=== PATIENT | female | born 1990 | race Caucasian/White ===

== ENCOUNTER 2020-11-28 08:16 | Emergency (ER) | payer BC, SELFPAY ==
[2020-11-28 08:22] VITALS: BP 126/85; PULSE 61; RESP 20; TEMP 36.4; O2SAT 100
--- NOTE | 2020-11-28 08:55 | ED.SKABFB ---
HPI - Skin/Abscess/Foreign Bdy General Chief complaint: Skin/Abscess/Foreign Body Stated complaint: rash all over Source: patient Mode of arrival: ambulatory History of Present Illness HPI narrative: Patient is a 30-year-old female who presents complaining of rash to bilateral arms and swelling to bilateral eyes. She reports itching to lips. She reports pulling weeds and working in the yard approximately 3 days ago. She reports symptoms have been increasing over the past day. She denies taking fjld-tyx-hwxlydy medications prior to arrival. She denies known allergies. She denies significant medical history. Related Data Home Medications Medication Instructions Recorded Confirmed cholecalciferol (vitamin D3) 50 50 mcg PO DAILY 10/02/20 11/29/20 mcg (2,000 unit) capsule levonorgestrel 20 mcg/24 hours (6 1 insert INTRAUTERINE ONCE 10/02/20 11/29/20 yrs) 52 mg intrauterine device Allergies Allergy/AdvReac Type Severity Reaction Status Date / Time poison nano extract Allergy Hives Verified 11/29/20 12:51 Review of Systems Review of Systems: CONSTITUTIONAL: Denies fever, chills, or sweats. EYES: Denies visual changes, redness, or discharge. ENT: Denies rhinorrhea, congestion, sore throat, or otalgia. CARDIOVASCULAR: Denies chest pain, palpitations, or edema. RESPIRATORY: Denies cough or dyspnea. GASTROINTESTINAL: Denies abdominal pain, nausea, vomiting, or diarrhea. GENITOURINARY: Denies dysuria or hematuria. SKIN: Rash to bilateral arms MUSCULOSKELETAL: Denies back pain, joint pain, or myalgia. NEUROLOGIC: Denies headache, numbness, dizziness, or weakness. PSYCHIATRIC: Denies anxiety or depression. [facility] Past Medical History Medical History Carpal tunnel syndrome IBS (irritable bowel syndrome) IUD (intrauterine device) in place Morbid obesity with BMI of 50.0-59.9, adult PCOS (polycystic ovarian syndrome) Situational anxiety Family History Family History Mother Family history of mental disorder Depression Family history of migraine headaches Age related osteoporosis Grandparent Hypertension Family history of cardiovascular disease Family history of malignant neoplasm of breast in first degree relative Dementia COPD (chronic obstructive pulmonary disease) Sibling Family history of drug addiction Social History Social History Smoking status: Never smoker Second hand tobacco smoke exposure: Yes Smoking end date: 07/02/13 Alcohol intake: current Drinks per week: 1 Substance use: never Substance use type: does not use Gender identity (if verbalized by the patient): Female Sexual Orientation (if Verbalized by the Patient): Straight or Heterosexual Spiritual care concerns: No Agree to blood products: Yes Comments At the time of signature, I have reviewed and agree with nursing past medical, surgical, social, and family history unless otherwise noted. Please see nursing chart for further information. There is no relevant family history pertinent to the presenting complaint. Exam Narrative: GENERAL: Well-appearing, well-nourished, and in no acute distress. HEAD: Normocephalic, atraumatic. EYES: EOMI. No redness or drainage. Conjunctiva are normal. ENT: Mucous membranes pink and moist. Nares clear. No rhinorrhea. TMs normal bilaterally. Throat normal. Uvula midline. CHEST: No respiratory distress. HEART: Regular rate and rhythm. EXTREMITIES: Normal range of motion. SKIN: Linear blistering of bilateral arms, erythema and edema without lesions to bilateral eyes NEURO: No focal deficits. Alert and oriented x3. Gait steady. PSYCH: Normal affect. No signs of depression or anxiety. Course Vital Signs Vital signs: Vital Signs Temperature 36.4 C 11/28/20 08:22 Pulse Rate 61 11/28/20 08:2
== END 2020-11-28 09:20 | disposition home or self-care (01) ==
PROVIDERS: Emergency Provider Nurse Practitioner; PCP Family Medicine
DX: L25.9 Unspecified contact dermatitis, unspecified cause (principal); E66.01 Morbid (severe) obesity due to excess calories; Z68.42 Body mass index [BMI] 45.0-49.9, adult; I25.2 Old myocardial infarction
CPT/HCPCS: 99213; G0463

== ENCOUNTER 2020-11-29 12:39 | Emergency (ER) | payer BC, SELFPAY ==
[2020-11-29 12:44] VITALS: BP 131/86; PULSE 60; RESP 20; TEMP 36.7; O2SAT 99
--- NOTE | 2020-11-29 12:48 | ED.SKABFB ---
HPI - Skin/Abscess/Foreign Bdy General Chief complaint: Skin/Abscess/Foreign Body Stated complaint: poison Jany face Time Seen by Provider: 11/29/20 12:57 Source: patient and RN notes reviewed Mode of arrival: ambulatory Limitations: no limitations History of Present Illness HPI narrative: 30-year-old female presents with concern for worsening poison jany. Reports she was seen in this clinic yesterday and was prescribed prednisone, she took a dose yesterday and took a dose this morning. She reports symptoms have worsened, spread to her eyes and face. Reports she is starting to have itching in her genital area. Reports she is used [id number] creams, Benadryl with no relief. She denies trouble breathing, trouble swallowing, swollen lips, swollen tongue. MD complaint: rash Related Data Home Medications Medication Instructions Recorded Confirmed cholecalciferol (vitamin D3) 50 50 mcg PO DAILY 10/02/20 11/29/20 mcg (2,000 unit) capsule levonorgestrel 20 mcg/24 hours (6 1 insert INTRAUTERINE ONCE 10/02/20 11/29/20 yrs) 52 mg intrauterine device Allergies Allergy/AdvReac Type Severity Reaction Status Date / Time poison jany extract Allergy Hives Verified 11/29/20 12:51 Review of Systems Review of Systems: CONSTITUTIONAL: Denies malaise, chills, sweats, or fever. EYES: Denies visual changes, redness, or discharge. ENT: Denies rhinorrhea, congestion, sinus pain, otalgia or sore throat. Denies swollen lips, swollen tongue CARDIOVASCULAR: Denies chest pain, palpitations, or edema. RESPIRATORY: Denies cough or dyspnea. GASTROINTESTINAL: Denies abdominal pain, nausea, vomiting, diarrhea SKIN: Reports itchy rash on arms, legs, face, groin MUSCULOSKELETAL: Denies myalgia. All systems reviewed & are unremarkable except as noted in HPI and below PMFSH Past Medical History Medical History (Updated 11/29/20 @ 13:02 by Valeria Clark NP) Carpal tunnel syndrome IBS (irritable bowel syndrome) IUD (intrauterine device) in place Morbid obesity with BMI of 50.0-59.9, adult PCOS (polycystic ovarian syndrome) Situational anxiety Family History Family History Mother Family history of mental disorder Depression Family history of migraine headaches Age related osteoporosis Grandparent Hypertension Family history of cardiovascular disease Family history of malignant neoplasm of breast in first degree relative Dementia COPD (chronic obstructive pulmonary disease) Sibling Family history of drug addiction Social History Social History Smoking status: Never smoker Second hand tobacco smoke exposure: Yes Smoking end date: 07/02/13 Alcohol intake: current Drinks per week: 1 Substance use: never Substance use type: does not use Gender identity (if verbalized by the patient): Female Sexual Orientation (if Verbalized by the Patient): Straight or Heterosexual Spiritual care concerns: No Agree to blood products: Yes Comments At time of signature, agree with nursing past medical, surgical, social and family history. There is no relevant family history pertinent to the presenting complaint Exam Narrative: GENERAL: Well-appearing, well-nourished, and in no acute distress. HEAD: Normocephalic, atraumatic. EYES: PERRLA, conjunctivae clear, sclera clear, and EOMI. ENT: Mucous membranes moist. Oropharynx without edema, erythema or lesions. NECK: Supple. No lymphadenopathy CHEST: Clear to auscultation. No respiratory distress. HEART: Regular rate and rhythm. SKIN: Warm, dry. Maculopapular rash noted to bilateral forearms. Erythema, edema noted to face, superficial edema to eyelids. NEURO: Alert and oriented x3. PSYCH: Normal mood and affect Course Course Emergency Course: Same Medrol 125 mg given Patient is aware of diagnosis, understands and agrees to treatment plan
[2020-11-29 12:52] VITALS: BP 131/86; PULSE 60; RESP 20; TEMP 36.7; O2SAT 99
[2020-11-29] MEDS: methylPREDNISolone SOD SUCC 125 MG VIAL IM (13:10)
== END 2020-11-29 13:24 | disposition home or self-care (01) ==
PROVIDERS: Emergency Provider Nurse Practitioner; PCP Family Medicine
DX: L24.7 Irritant contact dermatitis due to plants, except food (principal)
CPT/HCPCS: 96372; 99213; G0463; J2930

== ENCOUNTER 2022-09-03 16:41 | Emergency (ER) | payer OTHER, SELFPAY ==
--- NOTE | 2022-09-03 16:43 | ED.EYEPROB ---
HPI - Eye Problem General Chief complaint: Eye Problems Stated complaint: swollen red eyes Time Seen by Provider: 09/03/22 16:43 Source: patient and RN notes reviewed History of Present Illness HPI Narrative: Patient is a 31-year-old female who presents to urgent care with complaints of bilateral swollen and red eyes. Patient states that she woke up today with redness and puffiness. States that she went to an outdoor of min this afternoon and it seemed to have gotten much worse with the swelling and redness. Patient states that they have been matting throughout the day. Patient has been taking sinus medication, used Visine eye drops, cool compress. Patient denies any trauma or injury to the eye. No other acute complaints. No acute distress noted. Patient aware the plan of care. Some parts of this dictation were generated by voice recognition software and may contain typographical and/or grammatical inaccuracies. Related Data Home Medications Medication Instructions Recorded Confirmed levonorgestrel 21 mcg/24 hours (8 1 insert intrauterine ONCE 10/02/20 09/01/22 yrs) 52 mg intrauterine device (Mirena) calcium carbonate 600 mg calcium 1,200 mg PO DAILY 09/01/22 09/01/22 (1,500 mg) tablet cholecalciferol (vitamin D3) 125 125 mcg PO DAILY 09/01/22 09/01/22 mcg (5,000 unit) capsule Allergies Allergy/AdvReac Type Severity Reaction Status Date / Time poison nano extract Allergy Hives Verified 09/01/22 09:04 Review of Systems Review of Systems: CONSTITUTIONAL: Denies fever, chills, or sweats. EYES: Reports of redness, swelling, discharge and matting to bilateral eyes ENT: Denies rhinorrhea, congestion, sore throat, or otalgia. CARDIOVASCULAR: Denies chest pain, palpitations, or edema. RESPIRATORY: Denies cough or dyspnea. GASTROINTESTINAL: Denies abdominal pain, nausea, vomiting, or diarrhea. GENITOURINARY: Denies dysuria or hematuria. SKIN: Denies rash or itching. MUSCULOSKELETAL: Denies back pain, joint pain, or myalgia. NEUROLOGIC: Denies headache, numbness, or weakness. All other systems reviewed are negative, except as documented in HPI. [facility] Past Medical History Medical History (Updated 09/03/22 @ 17:09 by Beth E. Springman, MANAGER MASSAGE DEPARTMENT) Anxiety Carpal tunnel syndrome Daytime sleepiness Hot flashes IBS (irritable bowel syndrome) IUD (intrauterine device) in place Morbid obesity with BMI of 50.0-59.9, adult PCOS (polycystic ovarian syndrome) Situational anxiety Surgical History Surgical History H/O gynecological procedure Mirena IUD Removal/Insertion Family History Family History Mother Family history of mental disorder Depression Family history of migraine headaches Age related osteoporosis Grandparent Hypertension Family history of cardiovascular disease Family history of malignant neoplasm of breast in first degree relative Dementia COPD (chronic obstructive pulmonary disease) Sibling Family history of drug addiction Social History Social History Smoking status: Former smoker Second hand tobacco smoke exposure: Yes Smoking end date: 07/03/15 Alcohol intake: current Drinks per week: 3 Substance use: never Substance use type: does not use Lack of Transportation: No Lack of Food: Never True Current Housing: I Have Housing Concerned About Future Housing: No Difficulty Paying Gas/Electric Bills: No Difficulty Paying for Meds: No Currently Unemployed: No Education: Bachelor's Degree Difficulty w/ Childcare or Family Care: No Living arrangements: with family Occupation/Education: occupation Gender identity (if verbalized by the patient): Female Sexual Orientation (if Verbalized by the Patient): Straight or Heterosexual Spiritual care concerns: No Agre
[2022-09-03 16:46] VITALS: BP 128/89; PULSE 72; RESP 20; TEMP 37.2; O2SAT 100
[2022-09-03] MEDS: predniSONE 20 MG TABLET 60 MG PO (17:08)
== END 2022-09-03 17:14 | disposition home or self-care (01) ==
PROVIDERS: Emergency Provider Nurse Practitioner Family; PCP Family Medicine
DX: H10.9 Unspecified conjunctivitis (principal); E66.01 Morbid (severe) obesity due to excess calories; Z68.41 Body mass index [BMI] 40.0-44.9, adult; Z87.891 Personal history of nicotine dependence
CPT/HCPCS: 99213; G0463; J7512

== ENCOUNTER 2024-04-24 13:02 | Outpatient (CLI) | payer OTHER, SELFPAY ==
--- NOTE | ~2024-04-24 | MMUS_ITS ---
EXAMINATION: MM diagnostic melissa BI w cora, US breast RT limited HISTORY: Probable right breast abnormality TECHNIQUE: Additional 3-D tomosynthesis images of the breasts were performed and synthetic 2-D images were generated. CAD analysis was submitted and interpreted. High resolution Limited right breast ult rasound was performed. COMPARISON: None BREAST PARENCHYMAL COMPOSITION: Not Dense: The breasts are almost entirely fatty. FINDINGS: MAMMOGRAPHIC FINDINGS: There are no suspicious masses, calcifications or architectural distortion in either breast to sugges t malignancy. ULTRASOUND: Limited right breast ultrasound: Normal heterogeneous echotexture without focal solid or cystic mass. IMPRESSION: 1. No evidence for malignancy in either breast. 2. Routine yearly screening mammogram and regular clinical breast examination are recommended. BI-RADS Category 1: Negative Reviewed, dictated and finalized at location B. STITCH WAISTLINE JOINER IMPRESSION: 1. No evidence for malignancy in either breast. 2. Routine yearly screening mammogram and regular clinical breast examination a re recommended. BI-RADS Category 1: Negative
--- OUTSIDE RECORDS SUMMARY | 2024-04-24 14:07 | XMS_ITS | Clinical Summary ---
Author Organization [facility] [place] [address] Address [address] [place] [address] Care Team Providers Care Health Aid Name Role Phone Renuka Guevara MD Primary Care Provider [phone] Social History Tobacco Use Types Packs/Day Years Used Date Smoking Tobacco: Never Assessed Personal Safety Answer Date Recorded Getting School Help Needed Not on file 06/03 Comments Unknown Sex and Gender Information Value Date Recorded Sex Assigned at Not on file Legal Sex Female 7:36 AM CDT Gender Identity Not on file Sexual Orientation Not on file Plan of Treatment Not on file Insurance [facility] Care Teams Health Aid Relationship Specialty Start Date End Date Renuka Guevara MD PCP - General Family Medicine 10/05/20
--- OUTSIDE RECORDS SUMMARY | 2024-04-24 14:07 | XMS_ITS | Referral Summary ---
Author Organization [facility] [place] [address] Address [address] [place] [address] Care Team Providers Care Metal Bumper Name Role Phone Renuka Guevara MD Primary Care Provider [phone] Social History Tobacco Use Types Packs/Day Years [...] Plan of Treatment Not on file Insurance [facility] Care Teams Metal Bumper Relationship Specialty Start Date End Date Renuka Guevara MD PCP - General Family Medicine 10/05/20
== END 2024-04-24 13:03 | disposition home or self-care (01) ==
LOC: ANHIMG 13:07
PROVIDERS: PCP Family Medicine; Visit Provider Obstetrics & Gynecology
DX: N63.13 Unspecified lump in the right breast, lower outer quadrant (principal)
CPT/HCPCS: 76642; 77062; 77066; G0279

== ENCOUNTER 2024-10-16 13:00 | Outpatient (CLI) | payer OTHER, SELFPAY ==
--- OUTSIDE RECORDS SUMMARY | 2024-10-16 13:38 | XMS_ITS | Clinical Summary ---
Author Organization [facility] [place] [address] Address [address] [place] [address] Care Team Providers Care Supervisor Tumbling And Rolling Name Role Phone Renuka Guevara MD Primary Care Provider [phone] Social History Tobacco Use Types Packs/Day Years [...] Plan of Treatment Not on file Insurance [address] [place] [address] Care Teams Supervisor Tumbling And Rolling Relationship Specialty Start Date End Date Renuka Guevara MD PCP - General Family Medicine 10/05/20
--- OUTSIDE RECORDS SUMMARY | 2024-10-16 13:38 | XMS_ITS | Referral Summary ---
Author Organization [facility] [place] [address] Address [address] [place] [address] Care Team Providers Care Civil Clerk Name Role Phone Renuka Guevara MD Primary Care Provider [phone] Social History Tobacco Use Types Packs/Day Years [...] Plan of Treatment Not on file [place] [address] [place] [address] Care Teams Civil Clerk Relationship Specialty Start Date End Date Renuka Guevara MD PCP - General Family Medicine 10/05/20
== END 2024-10-16 13:01 | disposition home or self-care (01) ==
LOC: ANHBWCAUD 13:24
PROVIDERS: PCP Nurse Practitioner Family; Visit Provider Nurse Practitioner Family
DX: H93.13 Tinnitus, bilateral (principal)
CPT/HCPCS: 92557; 92567

== ENCOUNTER 2024-11-27 12:58 | Outpatient (CLI) | payer OTHER, SELFPAY ==
--- NOTE | 2024-11-27 13:20 | NEURO_ITS ---
Impression: # Non-diabetic complains of numbness of hands. 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 # Normal Needle/ EMG exam. # Clinical correlation recommended. Nerve Conduction Studies ?Stim Site NR Peak (ms) P-T Amp (?V) Site1 Site2 Delta-P (ms) Dist (cm) Robert (m/s) Left Median Anti Sensory (2-3nd Digit) Wrist ? 3.3 29.1 Wrist 2-3nd Digit 3.3 14.0 42 Wrist ? 3.4 29.1 Wrist 2-3nd Digit 3.3 14.0 42 Right Median Anti Sensory (2-3nd Digit) Wrist ? 2.7 31.7 Wrist 2-3nd Digit 2.7 14.0 52 Wrist ? 2.8 31.2 Wrist 2-3nd Digit 2.7 14.0 52 Left Radial Anti Sensory (Base 1st Digit) Wrist ? 1.7 13.5 Wrist Base 1st Digit 1.7 0.0 Right Radial Anti Sensory (Base 1st Digit) Wrist ? 1.8 16.1 Wrist Base 1st Digit 1.8 0.0 Left Ulnar Anti Sensory (5th Digit) Wrist ? 2.2 32.5 Wrist 5th Digit 2.2 14.0 64 Right Ulnar Anti Sensory (5th Digit) Wrist ? 1.8 30.8 Wrist 5th Digit 1.8 14.0 78 ?Stim Site NR Onset (ms) O-P Amp (mV) Site1 Site2 Delta-0 (ms) Dist (cm) Robert (m/s) Left Median Motor (Abd Poll Brev) Wrist ? 3.8 4.0 Elbow Wrist 4.4 28.0 64 Elbow ? 8.2 1.9 Right Median Motor (Abd Poll Brev) Wrist ? 2.8 5.3 Elbow Wrist 5.3 29.0 55 Elbow ? 8.1 4.2 Left Ulnar Motor (Abd Dig Minimi) Wrist ? 2.1 4.4 A Elbow Wrist 4.9 30.0 61 A Elbow ? 7.0 4.9 B Elbow Wrist 3.4 21.0 62 B Elbow ? 5.5 6.1 Right Ulnar Motor (Abd Dig Minimi) Wrist ? 2.8 5.9 A Elbow Wrist 4.1 27.0 66 A Elbow ? 6.9 4.3 B Elbow Wrist 2.9 19.0 66 B Elbow ? 5.7 3.1 F Wave Studies ?NR F-Lat (ms) L-R F-Lat (ms) Left Median (Mrkrs) (Abd Poll Brev) ? 25.76 0.29 Right Median (Mrkrs) (Abd Poll Brev) ? 25.47 0.29 Left Ulnar (Mrkrs) (Abd Dig Min) ? 25.92 0.51 Right Ulnar (Mrkrs) (Abd Dig Min) ? 25.41 0.51 Electromyography ?Side Muscle Nerve Root Ins Act Fibs Amp Dur Recrt Comment Right 1stDorInt Ulnar C8-T1 Nml Nml Nml Nml Nml Right Ext Indicis Radial (Post Int) C7-8 Nml Nml Nml Nml Nml Right Ext Digitorum Radial (Post Int) C7-8 Nml Nml Nml Nml Nml Right BrachioRad Radial C5-6 Nml Nml Nml Nml Nml Right PronatorTeres Median C6-7 Nml Nml Nml Nml Nml Right Abd Poll Brev Median C8-T1 Nml Nml Nml Nml Nml Right ABD Dig Min Ulnar C8-T1 Nml Nml Nml Nml Nml Right FlexPolLong Median (Ant Int) C7-8 Nml Nml Nml Nml Nml Right Abd Poll Long Radial (Post Int) C7-8 Nml Nml Nml Nml Nml Left 1stDorInt Ulnar C8-T1 Nml Nml Nml Nml Nml Left Ext Indicis Radial (Post Int) C7-8 Nml Nml Nml Nml Nml Left Ext Digitorum Radial (Post Int) C7-8 Nml Nml Nml Nml Nml Left BrachioRad Radial C5-6 Nml Nml Nml Nml Nml Left PronatorTeres Median C6-7 Nml Nml Nml Nml Nml Left Abd Poll Brev Median C8-T1 Nml Nml Nml Nml Nml Left ABD Dig Min Ulnar C8-T1 Nml Nml Nml Nml Nml Left FlexPolLong Median (Ant Int) C7-8 Nml Nml Nml Nml Nml Left Abd Poll Long Radial (Post Int) C7-8 Nml Nml Nml Nml Nml
--- OUTSIDE RECORDS SUMMARY | 2024-11-27 13:39 | XMS_ITS | Clinical Summary ---
Author Organization [facility] [place] [address] [place] [address] Care Team Providers Care Computer Repairer Name Role Phone Renuka Guevraa MD Primary Care Provider [phone] Social History Tobacco Use Types Packs/Day Years [...] Plan of Treatment Not on file [place] [address] [address] Care Teams Computer Repairer Relationship Specialty Start Date End Date Renuka Guevara MD PCP - General Family Medicine 10/05/20
[2024-11-27 14:26] LABS: Hematocrit 41.4 % (37.0-47.0); Hemoglobin 13.9 g/dL (12.0-15.0); Immature Granulocyte Percent A 1.0 % (0-0.5); Lymphocytes Absolute Auto 1.47 K/mm3 (0.9-3.2); Mean Corpuscular HGB Conc 33.6 g/dl (32-36); Mean Corpuscular Hemoglobin 29.0 pg (26-34); Mean Corpuscular Volume 86.4 fl (80-100); Nucleated Red Blood Cells Absolute Auto 0.000 K/mm3 (0.0-0.012); Nucleated Red Blood Cells Perc 0.0 % (0.0-0.2); Platelet Count Result 191 k/mm3 (150-375); Red Blood Count 4.79 M/mm3 (4.2-5.4); White Blood Count 5.0 K/mm3 (4.5-10.0)
[2024-11-27 14:42] LABS: Alanine Aminotransferase 43 U/L (6-35); Albumin Level 4.0 g/dL (3.5-5.1); Alkaline Phosphatase 68 U/L (38-126); Anion Gap 5 mmol/L (4-12); Aspartate Amino Transferase 41 U/L (14-36); Bilirubin,Total 0.8 mg/dL (0.2-1.3); Blood Urea Nitrogen 9 mg/dL (7-17); Calcium 8.2 mg/dL (8.4-10.2); Carbon Dioxide 28 mmol/L (22-30); Chloride 105 mmol/L (98-107); Cholesterol 183 mg/dL (0-200); Estimated Glomerular Filt Rate > 60; Glucose 86 mg/dL (65-110); HDL Direct 41 mg/dL; Potassium 3.8 mmol/L (3.4-5.0); Sodium 138 mmol/L (137-145); Total Protein 6.5 g/dL (6.3-8.2); Triglycerides 157 mg/dL (<150)
[2024-11-27 15:18] LABS: Thyroid Stimulating Hormone 0.990 uIU/mL (0.465-4.680)
[2024-11-27 16:15] LABS: Hemoglobin A1C 5.1 % (<5.7)
== END 2024-11-27 12:59 | disposition home or self-care (01) ==
PROVIDERS: PCP Nurse Practitioner Family; Visit Provider Nurse Practitioner Family
DX: G56.00 Carpal tunnel syndrome, unspecified upper limb (principal); F41.9 Anxiety disorder, unspecified; K58.9 Irritable bowel syndrome, unspecified; E28.2 Polycystic ovarian syndrome; R73.01 Impaired fasting glucose; E55.9 Vitamin D deficiency, unspecified; G56.22 Lesion of ulnar nerve, left upper limb
CPT/HCPCS: 36415; 80053; 80061; 82306; 83036; 84443; 85025; 95886; 95911